=== PATIENT | female | born 1955 | race Caucasian/White ===

== ENCOUNTER 2019-03-22 05:57 | Day surgery (SDC) | payer BC ==
[2019-03-21 11:58] VITALS: BMI 18.8
[2019-03-22] MEDS ORDERED: Cyclopentolate 1% Opth Drop 2 ML BOT ONE (06:15)
[2019-03-22] MEDS ORDERED: Phenylephrine 2.5% Ophth Soln 5 ML BOT ONE (06:15)
[2019-03-22] MEDS ORDERED: Fluorouracil 100 MG, Enoxaparin Sodium 25 MG, EPINEPHrine 0.3 MG in Ophthalmic Irrigati... IRR SCH (06:23)
[2019-03-22] MEDS ORDERED: Midazolam HCl 2 mg/2 ml Vial ONE ×2 (06:29→06:44)
[2019-03-22] MEDS ORDERED: PROPOFOL 20 ML ONE (06:29)
[2019-03-22] MEDS ORDERED: Fentanyl 100 MCG/2 ML VIAL ONE (06:29)
[2019-03-22] MEDS ORDERED: Ondansetron PF 4 MG/2 ML Vial ONE (06:44)
[2019-03-22] MEDS ORDERED: Lidocaine 1% PF 5 ML VIAL ONE (10:29)
[2019-03-22] MEDS ORDERED: Lidocaine 4% PF 5 ML AMP ONE (10:29)
[2019-03-22] MEDS ORDERED: CEFAZOLIN 1 GM VIAL ONE (10:29)
[2019-03-22] MEDS ORDERED: Bupivacaine 0.75% 10 ML AMP ONE (10:29)
[2019-03-22] MEDS ORDERED: Maxitrol 0.1% Opth Oint 3.5 GM TUBE ONE (10:29)
[2019-03-22] MEDS ORDERED: Indocyanine Green 25 MG/10 ML VIAL ONE (10:29)
[2019-03-22] MEDS ORDERED: Triamcinolone 40 MG/ML VIAL ONE (10:29)
[2019-03-22] MEDS ORDERED: PROPOFOL 200 MG/20 ML VIAL ONE (10:30)
--- NOTE | 2019-03-22 14:57 | OP ---
DATE OF PROCEDURE: 03/22/2019 PREOPERATIVE DIAGNOSIS: Epiretinal membrane, left eye. POSTOPERATIVE DIAGNOSIS: Epiretinal membrane, left eye. PROCEDURE PERFORMED: Pars plana vitrectomy with membrane peel, left eye. ANESTHESIA: Local monitored anesthesia care. PROCEDURE IN DETAIL: The patient was identified in the preoperative holding area. Appropriate informed consent for planned surgical procedure on the left eye had been obtained. The patient was transported to the operative suite, where appropriate cardiopulmonary monitoring was established. Local anesthesia was obtained using retrobulbar-modified Van Lint lid block using 50:50 mixture of 4% lidocaine and 0.75% bupivacaine. The patient was prepped and draped in usual sterile manner for ophthalmic surgery on the left eye. Lid speculum was placed in the left eye. A 25-gauge trocar was placed through the conjunctiva and sclera supratemporally, inferotemporally, and supranasally. Infusion line was placed inferotemporally. Light pipe and vitreous cutter were inserted into the eye. Core vitrectomy was performed. Indocyanine green dye was infused on the posterior pole x1, identifying the internal limiting membrane and the epiretinal membrane. This was elevated using membrane scraper and peeled across the macula using end-gripping forceps. Direct ophthalmoscopy was used to exam the retina 360 degrees. No holes, breaks, or tears were identified. Trocars were removed. The eye was noted to retain pressure well. Retrobulbar Kenalog and subconjunctival Ancef were placed. Antibiotic ointment was placed, and the eye was patched and shielded. The patient was taken to postoperative recovery unit in good condition, having suffered no immediate perioperative complications. The patient was instructed to keep patch and shield on, avoid lifting and bending, and followup appointment with Dr. Asencio. Job ID: [id number]
== END 2019-03-22 09:03 | disposition home or self-care (01) ==
LOC: SDC 05:57
PROVIDERS: ATTEND Ophthalmology Retina Specialist
PROC: 08T53ZZ Resection of Left Vitreous, Percutaneous Approach (ICD-10-PCS; principal; 2019-03-22)
PROC: 08NF3ZZ Release Left Retina, Percutaneous Approach (ICD-10-PCS; principal; 2019-03-22)
DX: H35.372 Puckering of macula, left eye (principal); Z79.899 Other long term (current) drug therapy; Z88.0 Allergy status to penicillin
CPT/HCPCS: J0171; J1650; J2250; J2405; J2704; J3010; J9190

== ENCOUNTER 2024-09-05 13:28 | Outpatient (CLI) | payer MEDICARE, OTHER | END 2024-09-05 13:29 | disposition home or self-care (01) | LOC: BICMAMMO 13:28 | PROVIDERS: ATTEND Physician Assistant | DX: N63.11 Unspecified lump in the right breast, upper outer quadrant (principal) | CPT/HCPCS: 76642; 77066; G0279 ==

== ENCOUNTER → 2024-09-12 | Day surgery (SDC) | payer MEDICARE, OTHER | LOC: BICULT 12:28 | PROVIDERS: ATTEND Physician Assistant | PROC: 0H9T3ZX Drainage of Right Breast, Percutaneous Approach, Diagnostic (ICD-10-PCS; principal; 2024-09-12) | DX: C50.811 Malignant neoplasm of overlapping sites of right female breast (principal) | CPT/HCPCS: 19083; 88305; 88342; 88361 ==